=== PATIENT | female | born 1970 | race Two or more races ===

== ENCOUNTER 2016-12-08 14:07 | Emergency (ER) | payer MEDICAID, OTHER ==
[~2016-12-08] VITALS: Ht 152.4 cm; Wt 56.0 kg
[~2016-12-08 14:07] MED LIST: CLIN-73 PO; HYDR-762 PO; IBUP-1542 PO; bp meds
[2016-12-08 14:17] VITALS: Ht 152.4 cm; Wt 56.0 kg
[2016-12-08] MEDS ORDERED: IBUPROFEN 800 MG TAB PO ONE (16:30)
--- NOTE | 2016-12-08 16:36 | RADRPT ---
PROCEDURE: XR Chest. CLINICAL INDICATION: Chest pain. TECHNIQUE: Single frontal view of the chest was obtained COMPARISON: None FINDINGS: The soft tissues are normal. The bony elements are normal. The cardiomediastinal silhouette and hi lar structures are normal. The pulmonary vasculature is There is a left-sided aorta. The lungs are clear. The costophrenic angles are normal. IMPRESSION: 1. Normal chest x-ray. RPTAT:AAJJ Physician Lissette Date Time Electronically viewed and signed by Toño Pruitt Physician on 12/08/2016 16:35 /
[2016-12-08 16:51] LABS: ADD SCAN DIFF NO
[2016-12-08] MEDS ORDERED: ONDANSETRON 4 MG INJ IV STA (16:54)
[2016-12-08 16:56] LABS: BASOPHIL # 0.1 10^3/ul (0.0-0.1); BASOPHILS % 0.6 % (0.0-2.0); EOSINOPHILS # 0.1 10^3/ul (0.0-0.5); EOSINOPHILS % 0.9 % (0.0-7.0); HEMATOCRIT 43.2 % (37.0-47.0); LYMPHOCYTES # 2.3 10^3/ul (0.8-2.9); LYMPHOCYTES % 17.4 % (15.0-51.0); MEAN CORPUSCULAR HEMOGLOBIN 31.1 pg (29.0-33.0); MEAN CORPUSCULAR HGB CONC 34.7 g/dl (32.0-37.0); MEAN CORPUSCULAR VOLUME 89.4 fl (82.0-101.0); MEAN PLATELET VOLUME 10.8 fl (7.4-10.4); MONOCYTE # 0.7 10^3/ul (0.3-0.9); MONOCYTES % 5.4 % (0.0-11.0); NEUTROPHILS % 75.2 % (39.0-77.0); PLATELET COUNT 287 10^3/UL (140-415); RED BLOOD COUNT 4.83 10^6/ul (4.20-5.40); RED CELL DISTRIBUTION WIDTH 12.3 % (11.5-14.5); WHITE BLOOD COUNT 13.3 10^3/ul (4.8-10.8)
[2016-12-08 17:16] LABS: CHLORIDE 96 mmol/L (97-110); SODIUM 135 mmol/L (135-144)
[2016-12-08 17:18] LABS: CREATININE 0.52 mg/dl (0.44-1.00)
[2016-12-08 17:19] LABS: ANION GAP 12 (8-16); BLOOD UREA NITROGEN 10 mg/dl (7-20); CALCIUM 8.9 mg/dl (8.4-10.2); CARBON DIOXIDE 30 mmol/L (21-31); GLUCOSE 189 mg/dl (70-220)
[2016-12-08] MEDS ORDERED: POTASSIUM CHLORIDE (SR) 20 MEQ TAB PO STA (17:27)
[2016-12-08 17:29] LABS: INR 1.04; PROTIME 13.6 Sec (12.2-14.2); PT RATIO 1.1
[2016-12-08 17:30] LABS: PARTIAL THROMBOPLASTIN TIME 29.2 Sec (25.0-35.0); TROPONIN-I < 0.012 ng/ml (0.00-0.12)
[2016-12-08] MEDS ORDERED: OXYMETAZOLINE 0.05% 15 ML NAS SPRAY NASAL ONE (17:30)
[2016-12-08] MEDS ORDERED: ROSU20TA PO (17:38)
[2016-12-08] MEDS ORDERED: ASPI-664 PO (17:40)
[2016-12-08] MEDS ORDERED: CLOP75TA27 PO (17:40)
[2016-12-08] MEDS ORDERED: MULTI PO (17:41)
--- NOTE | 2016-12-08 17:48 | ERD ---
ER Documentation Chief Complaint Date/Time DATE: 12/08/16 TIME: 17:45 Chief Complaint flu x 2 weeks , chest pain x 2 days HPI This 46-year-old female presents to the emergency room for evaluation of nasal congestion, generalized weakness, cough, and a headache for the past 8 days. The patient states that she saw her primary care physician and was given an antibiotic to take for 5 days duration. She states that the antibiotic has not helped. The patient came to the emergency room today for evaluation. She denies any aggravating or relieving factors for her complaints at this time. She is denying any chest pain at this time but does state that when she coughs she has chest pain ROS All systems reviewed and are negative except as per history of present illness. Medications Home Meds Active Scripts Hydrocodone Bit-Acetaminophen* (Voca*) 10-325 Mg Tablet, 1 TAB PO Q6 Y for PAIN , #20 TAB Prov:LEN SALAS NP 08/28/15 Ibuprofen* (Motrin*) 600 Mg Tab, 600 MG PO Q6H Y for PAIN AND OR ELEVATED TEMP, #30 TAB Prov:LEN SALAS NP 08/28/15 Clindamycin Hcl* (Clindamycin Hcl*) 300 Mg Capsule, 450 MG PO TID for 10 Days, CAP Prov:LEN SALAS [employer] 08/28/15 Reported Medications Multivitamins* (Theragran*) 1 Tab Tab, 1 TAB PO DAILY, TAB 12/08/16 Clopidogrel Bisulfate (Clopidogrel) 75 Mg Tablet, 75 MG PO DAILY, #30 TAB 12/08/16 Aspirin (Low Dose Aspirin) 81 Mg Tablet.dr, 81 MG PO DAILY, #30 TAB 12/08/16 Rosuvastatin Calcium* (Crestor*) 20 Mg Tablet, 20 MG PO QHS, #30 TAB 12/08/16 [bp meds] Unknown Strength No Conflict Check 08/28/15 Allergies Allergies: Coded Allergies: No Known Allergy (Unverified , 12/08/16) PMhx/Soc History of Surgery: Yes (stents) Anesthesia Reaction: No Hx Cardiac Disorders: Yes (htn, NE x 3) Hx Alcohol Use: No Hx Substance Use: No Hx Tobacco Use: No Smoking Status: Former smoker Physical Exam Vitals Vital Signs Date Time Temp Pulse Resp B/P Pulse Ox O2 Delivery O2 Flow Rate FiO2 12/08/16 14:17 98.1 98 20 205/121 99 Physical Exam INITIAL VITAL SIGNS: Reviewed by me GENERAL: The patient is well developed and appropriate for usual state of health in no apparent distress HEENT: Bilateral nasal congestion, pupils equal, round, and reactive to light. EOMI. There is no scleral icterus. NECK: C-spine is soft and supple, there is no meningismus. There is no cervical lymphadenopathy. LUNGS: Clear to auscultation bilaterally. There are no rales, wheezes or rhonchi. HEART: Regular rate and rhythm, no murmurs, clicks, rubs or gallops. ABDOMEN: Soft, non-tender, non-distended. There are bowel sounds in all four quadrants. No rebound or guarding. EXTREMITIES: There is no peripheral cyanosis or edema. No focal swelling or erythema. NEUROLOGICAL: The patient moves all four extremities with 5/5 strength. Cranial nerves II - XII are intact. Normal gait. Alert and oriented SKIN: There is no apparent rash or petechiae. HEME/LYMPHATIC: There is no evidence of excessive bruising or lymphedema. PSYCHIATRIC: The patient does not appear anxious or depressed. Result Diagram: 12/08/16 1640 12/08/16 1640 Results 24 hrs Laboratory Tests Test 12/08/16 16:40 White Blood Count 13.310^3/ul Red Blood Count 4.8310^6/ul Hemoglobin 15.0g/dl Hematocrit 43.2% Mean Corpuscular Volume 89.4fl Mean Corpuscular Hemoglobin 31.1pg Mean Corpuscular Hemoglobin Concent 34.7g/dl Red Cell Distribution Width 12.3% Platelet Count 14971^3/UL Mean Platelet Volume 10.8fl Neutrophils % 75.2% Lymphocytes % 17.4% Monocytes % 5.4% Eosinophils % 0.9% Basophils % 0.6% Nucleated Red Blood Cells % 0.0/100WBC Neutrophils # 10.010^3/ul Lymphocytes # 2.310^3/ul Monocytes # 0.710^3/ul Eosinophils # 0.110^3/ul Basophils # 0.110^3/ul Nucleated Red Blood Cells # 0.010^3/ul Prothrombin Time 13.6Sec Prothrombin Time Ratio 1.1 INR International Normalized Ratio 1.04 Activated Partial Thromboplast Time 29.2Sec Sodium Level 135mmol/L Potassium Level 3.0mmol/L Chloride Level 96mmol/L Carbon Dioxide Level 30mmol/L Anion Gap 12 Blood Urea Nitrogen 10mg/dl Creatinine 0.52mg/dl Glucose Level 189mg/dl Calcium Level 8.9mg/dl Troponin I < 0.012ng/ml Current Medications Medications (Trade) Dose Ordered Sig/Nirali Route PRN Reason Start Time Stop Time Status Last Admin Dose Admin Ibuprofen (Motrin) 800 mg ONCE ONCE PO 12/08/16 16:30 12/08/16 16:31 DC 12/08/16 16:46 Ondansetron HCl (Zofran Inj) 4 mg ONCE STAT IV 12/08/16 16:54 12/08/16 16:55 DC 12/08/16 17:05 Potassium Chloride (Klor-Con 20) 40 meq ONCE STAT PO 12/08/16 17:27 12/08/16 17:40 DC Oxymetazoline HCl (Afrin [place]) 2 spray ONCE ONCE NASAL 12/08/16 17:30 12/08/16 17:40 DC Procedures/MDM Chest X-ray 1V Interpreted by me: Soft Tissue: No acute abnormalities Bones: No acute abnormalities Mediastinum/Cardiac Silhouette/Lungs: [No acute abnormalities] EKG: Rate/Rhythm: [Normal Sinus Rhythm] QRS, ST, T-waves: [No changes consistent w/ acute ischemia] Impression: [No evidence of ischemia or arrhythmia] This is a 46-year-old female who presents to the emergency room for evaluation of multiple complaints including fatigue, nasal congestion, cough, headache. Evaluated this patient and she was afebrile, not hypoxic, and hemodynamically stable. Lab work was obtained including a chest x-ray. Lab work does show leukocytosis. Patient will swab for influenza and is influenza negative. Her potassium was low at 3. She was given 40 mg of potassium by mouth. She was also given Afrin for her nasal congestion. This patient has no meningismus, my suspicion for meningitis is low at this time. She is hemodynamically stable and in no acute distress at this time. The patient is likely suffering from a viral syndrome and will be discharged home with instructions to stay hydrated and follow-up with her primary care physician. She was okay with her plan of care and was advised to return immediately to the ER if her symptoms were to worsen. The patient verbalized understanding. Departure Diagnosis: Primary Impression: Hypokalemia Additional Impression: Upper respiratory infection Condition: Stable CHRISTY PRICE DO Dec 08, 2016 17:48
[2016-12-08] MEDS ORDERED: OXYM15SP34 NASAL (17:49)
[2016-12-08] MEDS ORDERED: METO100T13 PO (18:09)
[2016-12-08 18:52] VITALS: BP 174/117; PULSE 84; RESP 18; TEMP 98.1
== END 2016-12-08 18:50 | disposition home or self-care (01) ==
LOC: E/R 14:07
DX: E87.6 Hypokalemia (principal); J06.9 Acute upper respiratory infection, unspecified; I10 Essential (primary) hypertension; E11.9 Type 2 diabetes mellitus without complications; Z87.891 Personal history of nicotine dependence; Z98.61 Coronary angioplasty status; Z79.82 Long term (current) use of aspirin
CPT/HCPCS: 36415; 71010; 80048; 84484; 85025; 85610; 85730; 87400; 93005; 96374; J2405; Z7502; Z7610